=== PATIENT | female | born 1985 | race Caucasian/White ===

== ENCOUNTER 2022-02-16 08:53 | Outpatient (CLI) | payer BC, SELFPAY ==
[2022-02-16 14:21] LABS: Albumin* 4.4 g/dL (3.3-5.0); Chloride* 105 mmol/L (96-114); Potassium* 4.5 mmol/L (3.6-5.1); Sodium* 138 mmol/L (135-149)
[2022-02-16 14:23] LABS: Cholesterol* 203 mg/dL (90-199); Creatinine* 0.9 mg/dL (0.5-1.5); Estimated Glomerular Filt Rate 85 ml/min
[2022-02-16 14:24] LABS: Alanine Aminotransferase* 16 U/L (4-35); Alkaline Phosphatase* 57 U/L (40-150); Aspartate Amino Transferase* 24 U/L (12-35); Bilirubin Total* 0.4 mg/dL (0.1-1.5); Blood Urea Nitrogen* 16 mg/dL (5-24); Carbon Dioxide* 24 mmol/L (20-32); Triglycerides* 167 mg/dL (40-149)
[2022-02-16 14:25] LABS: Calcium* 9.5 mg/dL (8.4-10.6); HDL Cholesterol* 50 mg/dL (>=50); LDL Cholesterol Calculated 120 mg/dL (<100)
[2022-02-16 15:51] LABS: Glucose* 94 mg/dL (60-115)
== END 2022-02-16 08:54 | disposition home or self-care (01) ==
PROVIDERS: PCP Physician Assistant Medical; Visit Provider Physician Assistant Medical
DX: Z78.9 Other specified health status (principal)
CPT/HCPCS: 80053; 80061; 84443

== ENCOUNTER 2023-03-17 07:12 | Outpatient (CLI) | payer BC, SELFPAY ==
--- NOTE | 2023-03-17 07:15 | CRLHL7_ITS ---
For Patients: As a result of the Century Cures Act, medical imaging exams and procedure reports are released immediately into your electronic medical record. You may view this report before your referring provider. If you have questions, please contact your health care provider. INDICATION: First trimester scan, establish dates. COMPARISON: None. TECHNIQUE: Real-time griggs-scale imaging of the pelvis was performed. FINDINGS: Sonographic imaging demonstrates a single living intrauterine gestation. The embryo demonstrates a regular cardiac rate measuring 154 beats per minute. The embryo`s crown-rump length measurement of 1.2 cm corresponds to a gestational age of 7 weeks 3 days with a sonographic due date of 10/31/2023. There is a normal-appearing yolk sac. There are no gross abnormalities noted within the embryo at this early state of development. The gestational sac has a normal appearance. There is a 0.6 x 0.7 x 2.6 cm perigestational hemorrhage. The amount of fluid within the sac appears appropriate for gestational age. The cervix is closed. The myometrium appears normal. The ovaries are of normal size. Corpus luteal cyst right ovary. There are no suspicious fluid collections noted in the cul-de-sac. IMPRESSION: Single living intrauterine with sonographic gestational age 7 weeks 3 days and sonographic due date of 10/31/2023. Inferior subchorionic hemorrhage measuring 6 x 7 x 26 millimeters. Dictated by Robert Lainez MD @ 03/17/2023 2:34:22 PM (Electronically Signed)
== END 2023-03-17 07:13 | disposition home or self-care (01) ==
LOC: US 07:12
PROVIDERS: PCP Physician Assistant Medical; Visit Provider Physician Assistant
DX: Z34.91 Encounter for supervision of normal pregnancy, unspecified, first trimester (principal); O20.9 Hemorrhage in early pregnancy, unspecified; Z3A.01 Less than 8 weeks gestation of pregnancy
CPT/HCPCS: 76817; 86592; 86703; 86704; 86706; 86762; 86787; 86803; 86850; 86900; 86901; 87086; 87340; 87491; 87591

== ENCOUNTER 2023-08-16 13:05 | Outpatient (CLI) | payer BC, SELFPAY | END 2023-08-16 13:06 | disposition home or self-care (01) | LOC: NFLDREF 08-21 06:47 | PROVIDERS: PCP Physician Assistant Medical; Referring Provider Physician Assistant Medical; Visit Provider Obstetrics & Gynecology | DX: Z34.93 Encounter for supervision of normal pregnancy, unspecified, third trimester (principal) | CPT/HCPCS: 86592 ==

== ENCOUNTER 2023-09-12 11:03 | Outpatient (CLI) | payer BC, SELFPAY ==
--- NOTE | 2023-09-12 11:00 | US_ITS ---
Patient: TREVER SCHMITT Facility:?[facility] Patient ID:?[id number] Site Patient ID:?[id number]. Site :?[id number] Study:?US-OB Pelvis OB F/U GROWTH-09/12/2023 11:58:53 AM Ordering Physician:?MAYA GARCIA M.D. Final Report: INDICATION: Third trimester scan, evaluate growth. COMPARISON: 03/17/2023 TECHNIQUE: Real time griggs scale imaging of the fetus was performed. FINDINGS: Sonographic imaging demonstrates a single living intrauterine gestation. Fetus demonstrates a regular cardiac rate of 159 beats per minute. Fetus has a vertex position. The placenta lies anteriorly. Amniotic fluid volume appears normal and there is a single deepest vertical pocket: 4.7 cm. The estimated weight is 2451gm which lies at the 79th %. BPD 94th percentile. HC 95th percentile. AC 82nd percentile. FL 44th percentile. The HC/AC ratio measures 1.07 range (0.93- 1.11). IMPRESSION: Sonographic gestational age 35 weeks 1 day and sonographic due date of 10/16/2023. Sonographic age 13 days ahead of the clinical age. Estimated weight 79th percentile. Abdominal circumference 82nd percentile Dictated by Robert Lainez MD @ 09/13/2023 1:08:28 PM Signed by:?Robert Lainez MD @09/13/2023 1:08:28 PM (Electronic Signature)
== END 2023-09-12 11:04 | disposition home or self-care (01) ==
LOC: US 11:03
PROVIDERS: PCP Physician Assistant Medical; Visit Provider Obstetrics & Gynecology
DX: O09.523 Supervision of elderly multigravida, third trimester (principal); O36.63X0 Maternal care for excessive fetal growth, third trimester, not applicable or unspecified; Z3A.35 35 weeks gestation of pregnancy
CPT/HCPCS: 76816

== ENCOUNTER 2023-10-04 12:28 | Outpatient (CLI) | payer BC, SELFPAY ==
[2023-10-05 20:26] LABS: Strep B DNA Probe Negative (Negative)
[2023-10-05 23:31] LABS: Strep B Susceptibility Needed? No
== END 2023-10-04 12:29 | disposition home or self-care (01) ==
LOC: FRMREF 12:29
PROVIDERS: PCP Orthopaedic Surgery; Visit Provider Obstetrics & Gynecology
DX: Z34.83 Encounter for supervision of other normal pregnancy, third trimester (principal)
CPT/HCPCS: 87081; 87653

== ENCOUNTER 2023-10-13 10:00 | Outpatient (RCR) | payer BC, SELFPAY | END 2023-12-13 10:33 | disposition home or self-care (01) | PROVIDERS: PCP Physician Assistant Medical; Visit Provider Obstetrics & Gynecology | DX: O99.891 Other specified diseases and conditions complicating pregnancy (principal); M54.50 Low back pain, unspecified; Z74.09 Other reduced mobility; R53.1 Weakness; Z51.89 Encounter for other specified aftercare | CPT/HCPCS: 97110; 97140; 97162; 97535 ==

== ENCOUNTER 2023-10-23 06:12 | Inpatient (IN) | payer BC, SELFPAY ==
[2023-10-23] VITALS (53 sets, daily range): BP systolic 81–127; BP diastolic 50–71; PULSE 57–109; RESP 14–16; TEMP 36.5–36.9; O2SAT 91–100; BMI 27.3
[2023-10-23 06:53] LABS: Basophils Absolute Auto 0.03 K/uL (0.00-0.30); Basophils Percent Auto 0.4 % (0.0-3.0); Eosinophils Percent Auto 1.2 % (0.0-7.0); Hematocrit 32.7 % (33.0-51.0); Hemoglobin* 10.8 gm/dL (12.0-16.0); Immature Granulocytes Abs Auto 0.05 K/uL (0.00-0.30); Immature Granulocytes Pct Auto 0.6 %; Lymphocytes Absolute Auto 2.09 K/uL (0.90-2.90); Lymphocytes Percent Auto 25.1 % (20-44); Mean Corpuscular HGB Conc 33 gm/dL (32-36); Mean Corpuscular Hemoglobin 30 pg (26-34); Mean Corpuscular Volume 91 fL (80-100); Neutrophils Absolute Auto 5.48 K/uL (1.7-7.0); Neutrophils Percent Auto 65.7 % (42.0-72.0); Platelet Count* 216 K/uL (140-440); RDW Coefficient of Variation % 13.6 % (11.5-15.5); Red Blood Count 3.58 m/uL (4.00-5.20); White Blood Count* 8.33 K/uL (4.50-11.00)
[2023-10-23 06:57] LABS: Slide Review Reflex No
[2023-10-23] MEDS: OXYTOCIN 30 unit/500 ML in NS 30 UNIT/500 ML BAG IVPB (07:47)
[2023-10-23] MEDS: LACTATED RINGERS 1000 ML 1,000 ML 124 ML IV (07:51)
--- NOTE | 2023-10-23 08:22 | P.LDBA_ITS ---
Subjective History of Present Illness Date Seen: 10/23/23 Narrative: Patient is being admitted to Labor and Delivery for elective induction of labor. She is a 38 year old at 39 weeks, 1 day gestation. Her full history and physical was dictated by Dr. Amalia Morton CNM on 10/11/2023. P estelle see this for details. Specific Issues/Plans Spouse: Luke. Chidren: Bert Richardson Clara. Baby: Boy. 1. AMA * Level 2 ultrasound 06/02/23:EFW 75%, vtx, ant placenta w/o previa, 3 vessel cord. Normal survey. * [id number] 04/17/2023: No increased risk for aneuploidy. 2. Covid in the 1st trimester * US for EFW at 30-34 weeks * 2nd child (her boy) was 8#8oz. told by her ELECTRICAL DEVELOPMENT ENGINEER that she would not be able to deliver vaginally if her baby was bigger: pushed 2 hours with multiple lacerations, unmedicated. * 75% at 40 weeks is 3466gm = 7#9.6oz. * Elective IOL at 39 weeks. 3. Growth ultrasound at 33 weeks: BPD 94%, HC 95%, AC 82%, FL 44%. EFW 79%. 4. Hb 10.9 on 09/14 * SlowFe QOD Flu shot: Completed COVID shot: Planning Covid infection: 03/18/23 OB - Problem Based A/P Additional Plan (1) AMA (advanced maternal age) multigravida 35+: Status: Acute (2) Anemia affecting : Status: Acute Plan Multiparous patient at 39 weeks, 1 day with favorable cervix. Reassuring status with category 1 tracing GBS negative Delivery/Labor/Induction Plan Induction method: per pitocin protocol OB Result Labs Labs: Hemoglobin 10.8 this morning. Labs GBS Status: negative OB Exam Physical Exam Vital signs: Temp Pulse Resp BP Pulse Ox 98.4 F 87 16 126/70 100 10/23/23 06:24 10/23/23 06:24 10/23/23 06:24 10/23/23 06:24 10/23/23 06:25 Narrative: Physical exam: General: No acute distress Psych: Alert and oriented x3, full affect HEENT: Normocephalic, atraumatic Heart: Regular rate and rhythm, no murmur rub or gallop Lungs: Clear to auscultation bilaterally Abdomen: Gravid Lower extremities: No edema or erythema Pelvic exam: Per Romina Montague RN - 3 / -3 tracing: Baseline 135, accelerations to 170s, no decelerations, moderate variability. Infrequent contractions.
--- NOTE | 2023-10-23 12:43 | PM.OBPNVD1 ---
OB - PN:Subj Subjective Time Seen by Provider: 12:00 Date Seen: 10/23/23 Interval history: Mar is a 38 yo woman at 39 1/7 weeks' gestation here for elective IOL at term. Narrative: She has had pitocin for induction of labor beginning this morning. She is having regular contractions at this point, but they are not very painful. OB - PN: Obj Exam Physical Exam: Vital signs: Temp Pulse Resp BP Pulse Ox 98.4 F 65 16 81/51 L 100 10/23/23 10:35 10/23/23 11:56 10/23/23 06:24 10/23/23 11:56 10/23/23 06:25 blood pressure tends to run low on a regular basis Narrative: Gen - NAD SVE - 4 / 75% / -1 / anterior / soft AROM for clear fluid tracing: Baseline 135 / accelerations present / no decelerations / moderate variability OB - PN: Obj Data Labs Labs: Laboratory Results - last 24 hr 10/23/23 06:38 WBC 8.33 RBC 3.58 L Hgb 10.8 L Hct 32.7 L MCV 91 MCH 30 MCHC 33 RDW Coeff of Atul 13.6 Plt Count 216 Neut % (Auto) 65.7 Lymph % (Auto) 25.1 [place] % (Auto) 7.0 Eos % (Auto) 1.2 Baso % (Auto) 0.4 Neut # (Auto) 5.48 Lymph # (Auto) 2.09 [place] # (Auto) 0.60 Eos # (Auto) 0.10 Baso # (Auto) 0.03 Abs Immat Gran (auto) 0.05 Imm/Tot Granulo (auto) 0.6 Blood Type B Positive Antibody Screen NEGATIVE OB - PN: A/P Delivery Assessment and Plan (1) AMA (advanced maternal age) multigravida 35+: Status: Acute (2) Anemia affecting : Status: Acute
[2023-10-23] MEDS: BUPIVACAINE 0.25% PF 10 ML 10 ML ML EPIDURAL (12:58)
[2023-10-23] MEDS: ROPIVACAINE 0.2% 100 ml 100 ML 12 MG EPIDURAL (13:02)
[2023-10-23] MEDS: LACTATED RINGERS 1000 ML 1,000 ML 518 ML IV (13:11)
--- NOTE | 2023-10-23 13:16 | PM.ANBPRC ---
[facility] Medical History History of depression ?Z86.59 - Personal history of other mental and behavioral disorders (ICD-10) Essential tremor ?G25.0 - Essential tremor (ICD-10) Surgical History History of third molar tooth extraction ?K08.409 - Partial loss of teeth, unspecified cause, unspecified class (ICD-10) Family History Mother High cholesterol Father High cholesterol Grandfather Heart disease, Onset Age: 70 Lung cancer, Onset Age: 70 Social History Narrative: History of blood transfusion: no. 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 Marital status: . Anabaptism/cultural needs: no. Chemical or radiation exposure: no. Pre- tobacco use: no. Pre- alcohol use: no. Current tobacco use: no. Current alcohol use: no. Recreational drug use: no. Dietary restrictions: no. Blood transfusion acceptable in an emergency: yes. FAMILY AND GENETIC HISTORY: Negative for recurrent loss, defects, inheritable disease. PSYCHOSOCIAL HISTORY: History of depression or currently depressed: Yes, in college. Current or past physical, emotional, or sexual mistreatment: no. Problems that will make it hard to make it to appointments: no What is your current living situation?: I presently have a place to live Problems where you live: no known problems In the past 12 months, utilities in danger of being shut off: no In past 12 months, lack of transportation kept you from medical appts, meetings, work, or getting things needed for daily living: no In the past 12 mos, have been you worried that your food would run out before you had money to buy more?: never true In the past 12 mos, the food you bought just didn't last and you didn't have money to buy more?: never true Smoking Status: Never smoker How often does anyone, including family, friends and others, physically hurt you: never How often does anyone, including family, friends and others, insult or talk down to you: never How often does anyone, including family, friends and others, threaten you with harm: never How often does anyone, including family, friends and others, scream or curse at you: never Little interest or pleasure in doing things: not at all Feeling down, depressed, or hopeless: not at all Meds Home Medications and Allergies Home Medications ?Medication ?Instructions ?Recorded ?Confirmed ?Type lactobacillus combination no.4 3 3,000 mmu cells PO QDAY 10/11/23 10/23/23 History billion cell capsule (Probiotic) omega 7-xqu-jwu-fish oil 60 mg-90 1 cap PO QDAY 10/11/23 10/23/23 History mg-500 mg capsule (Fish Oil) wheat dextrin 3 gram/3.5 gram oral 1 packet PO QDAY 10/11/23 10/23/23 History powder packet (Benefiber Clear Sugar Free(dextrin)) magnesium 200 mg tablet 400 mg PO DAILY 10/23/23 10/23/23 History Allergies Allergy/AdvReac Type Severity Reaction Status Date / Time Sulfa (Sulfonamide Allergy Intermediate Swelling Verified 10/18/23 13:11 Antibiotics) of Lip/Tongue/Throat Results Labs Labs: Laboratory Results - last 24 hr 10/23/23 06:38 WBC 8.33 RBC 3.58 L Hgb 10.8 L Hct 32.7 L MCV 91 MCH 30 MCHC 33 RDW Coeff of Atul 13.6 Plt Count 216 Neut % (Auto) 65.7 Lymph % (Auto) 25.1 [place] % (Auto) 7.0 Eos % (Auto) 1.2 Baso % (Auto) 0.4 Neut # (Auto) 5.48 Lymph # (Auto) 2.09 [place] # (Auto) 0.60 Eos # (Auto) 0.10 Baso # (Auto) 0.03 Abs Immat Gran (auto) 0.05 Imm/Tot Granulo (auto) 0.6 Blood Type B Positive Antibody Screen NEGATIVE Vital Signs Vital Signs: Last Vital Signs Temp 98.4 F 10/23/23 10:35 Pulse 75 10/23/23 13:12 Resp 16 10/23/23 06:24 BP 104/64 10/23/23 13:12 Pulse Ox 98 10/23/23 13:16 Weight: 74.48 kg Height: 165.1 cm Anesthesia Procedures Epidural Insertion Patient Location: OB Start Time: 12:30 Stop Time: 13:15 Start Date: 10/16/23 Stop Date: 10/23/23 Reason for Block: procedure for pain Patient Position: sitting Performed By: Carmela Polk Preanesthetic Checklist: IV checked, risks and benefits discussed, monitors and equipment checked, timeout performed and anesthesia consent Prep: chlorhexidine gluconate Monitoring: blood pressure monitoring, continuous pulse oximetry and heart rate Approach: midline Vertebral Space: lumbar (1-5) Epidural Technique: MUSA saline Needle Type: Tuohy needle Injection Technique: continuous catheter Needle gauge: 17 Needle Length (cm): 10 cm Needle Insertion Depth (cm): 6 Catheter Gauge: 19 Catheter Type: multi-orifice Catheter at skin depth (cm): 12 Test Dose Result: negative and lidocaine 1.5% with epinephrine 1 to 200,000
[2023-10-23] MEDS: PHENYLEPHRINE 100 MCG/ML SYRINGE IVP ×3 (13:23→14:20)
--- NOTE | 2023-10-23 13:26 | PM.OBPNL ---
Subjective Time Seen by Provider: 12:00 Date Seen: 10/23/23 Narrative: Mar is a 38 yo woman at 39 1/7 weeks' gestation here for elective IOL at term. She has had pitocin for induction of labor beginning this morning. She is having regular contractions at this point, but they are not very painful. Objective Exam: Gen - NAD SVE - 4 / 75% / -1 / anterior / soft AROM for clear fluid Vital Signs: Last Vital Signs Temp 98.4 F 10/23/23 10:35 Pulse 83 10/23/23 13:24 Resp 16 10/23/23 06:24 BP 91/55 L 10/23/23 13:24 Pulse Ox 99 10/23/23 13:26 Comments: tracing: Baseline 135 / accelerations present / intermittent brief variable decelerations / moderate variability Assessment Tracing Comments: Latent labor, progressing slowly with pitocin Category 2 tracing, overall reassuring GBS negative Plan Plan: AROM for clear fluid as noted above Continue pitocin augmentation Continuous monitoring Epidural as desired
[2023-10-23] MEDS: ePHEDrine sulfate 5 MG/ML inj 10 MG IVP (14:44)
[2023-10-23] MEDS: ONDANSETRON 2 MG/ML inj 4 MG IV (14:53)
--- NOTE | 2023-10-23 17:00 | W.PM.VAGDEL1 ---
Procedure Delivery date: 10/23/23 Procedure Done: Global Procedure Details: The patient is a 38 year-old G 5 P 3-0-1-3 woman admitted on 10/23/2023 at 39 Weeks, 1 Days gestation for elective induction of labor.? Cervical exam on admission was 3 cm/50 % effaced/Ms. 3 station with membranes intact in vertex presentation.? Contractions were infrequent.? heart rate demonstrated a category 1 tracing.? AROM occurred at 12:00 p.m. with clear fluid. ? Labor Analgesia:? Epidural Pitocin:? Yes ? Complete:? 4:37 p.m. ? Pushing:? 4:43 p.m. ? heart tones during second stage were notable for decelerations into the 90s just before . ? At 4:52 p.m. a viable male infant delivered in vertex TIFFANIE presentation over intact perineum via spontaneous vaginal delivery.? Infant was placed on maternal abdomen.? Cord was clamped and cut after greater than 60 seconds.? Nose and mouth were bulb suctioned.? weight pending.? 9 at 1 minute and 9 at 5 minutes.? Shoulder dystocia: No.? Nuchal cord: No. ? Placenta delivered spontaneously and complete at 4:52 p.m. with a 3 vessel cord. ? Mother and were stable after delivery. ? Lacerations:? First-degree perineal, repaired with a single [id number] suture of 3-0 Vicryl. ? Blood loss: 75 mL. Blood loss measurement type: QBL ? Sponge and needles counts are correct.
[2023-10-23] MEDS: ACETAMINOPHEN 500 MG TABLET 1000 MG PO (20:17)
[2023-10-24 00:16] VITALS: BP 97/61; PULSE 76; RESP 16; TEMP 36.7; O2SAT 98
[2023-10-24] MEDS: IBUPROFEN 600 MG TABLET PO ×3 (00:21→12:54)
[2023-10-24 03:57] VITALS: BP 94/60; PULSE 69; RESP 16; TEMP 36.6; O2SAT 97
--- NOTE | 2023-10-24 07:36 | P.DS_ITS ---
DS: Providers Provider Date Seen: 10/24/23 Date of admission: 10/23/23 06:12 Primary care physician: Aaron Helm MD Admitting Clinician: Stephanie Simmons MD Attending Physician on discharge: Mallorie Vasquez CNM DS: Diagnosis Discharge Diagnosis (1) care and examination immediately after delivery: Status: Acute (2) Lactating mother: Status: Acute Exam Narrative: Exam Narrative: GENERAL APPEARANCE:? normal affect, alert, no distress MOOD:? appropriate CHEST:? clear to auscultation HEART:? regular rate and rhythm ABDOMEN:? soft, non-tender the uterine fundus is At Umbilicus, Midline and is appropriate for the stage of recovery. PERINEUM:? mild edema of the perineum, there is a Perineal Laceration,?1st degree that is healing well. EXTREMITIES:? normal and no edema Const: Vital Signs, click to edit/add: Vital Signs - 24 hr 10/23/23 08:32 10/23/23 09:24 10/23/23 10:34 Temperature Pulse Rate 75 68 72 Pulse Rate [Pulse Oximeter] Respiratory Rate Blood Pressure 102/63 116/62 108/62 Blood Pressure [Ri ght Arm] Pulse Oximetry Oxygen Delivery Me thod 10/23/23 10:35 10/23/23 11:50 10/23/23 11:56 Temperature 98.4 F Pulse Rate 71 65 Pulse Rate [Pulse Oximeter] Respiratory Rate Blood Pressure 88/51 L 81/51 L Blood Pressure [Ri ght Arm] Pulse Oximetry Oxygen Delivery Me thod 10/23/23 12:51 10/23/23 12:56 10/23/23 13:01 Temperature Pulse Rate 76 Pulse Rate [Pulse Oximeter] Respiratory Rate Blood Pressure 127/64 Blood Pressure [Ri ght Arm] Pulse Oximetry 100 100 100 Oxygen Delivery Me thod 10/23/23 13:02 10/23/23 13:04 10/23/23 13:06 Temperature Pulse Rate 86 86 86 Pulse Rate [Pulse Oximeter] Respiratory Rate Blood Pressure 113/63 104/62 105/61 Blood Pressure [Ri ght Arm] Pulse Oximetry 100 Oxygen Delivery Me thod 10/23/23 13:08 10/23/23 13:10 10/23/23 13:11 Temperature Pulse Rate 82 81 Pulse Rate [Pulse Oximeter] Respiratory Rate Blood Pressure 101/63 102/62 Blood Pressure [Ri ght Arm] Pulse Oximetry 100 Oxygen Delivery Me thod 10/23/23 13:12 10/23/23 13:16 10/23/23 13:19 Temperature Pulse Rate 75 88 Pulse Rate [Pulse Oximeter] Respiratory Rate Blood Pressure 104/64 97/60 Blood Pressure [Ri ght Arm] Pulse Oximetry 98 Oxygen Delivery Me thod 10/23/23 13:21 10/23/23 13:24 10/23/23 13:26 Temperature Pulse Rate 83 Pulse Rate [Pulse Oximeter] Respiratory Rate Blood Pressure 91/55 L Blood Pressure [Ri ght Arm] Pulse Oximetry 99 91 99 Oxygen Delivery Me thod 10/23/23 13:28 10/23/23 13:31 10/23/23 13:33 Temperature Pulse Rate 57 L 75 Pulse Rate [Pulse Oximeter] Respiratory Rate Blood Pressure 91/53 L 95/54 L Blood Pressure [Ri ght Arm] Pulse Oximetry 98 Oxygen Delivery Me thod 10/23/23 13:36 10/23/23 13:37 10/23/23 13:41 Temperature Pulse Rate 71 Pulse Rate [Pulse Oximeter] Respiratory Rate Blood Pressure 92/50 L Blood Pressure [Ri ght Arm] Pulse Oximetry 97 98 Oxygen Delivery Me thod 10/23/23 13:42 10/23/23 13:46 10/23/23 13:47 Temperature Pulse Rate 72 Pulse Rate [Pulse Oximeter] Respiratory Rate Blood Pressure 95/54 L Blood Pressure [Ri ght Arm] Pulse Oximetry 97 92 Oxygen Delivery Me thod 10/23/23 14:05 10/23/23 14:19 10/23/23 14:34 Temperature Pulse Rate 71 71 69 Pulse Rate [Pulse Oximeter] Respiratory Rate Blood Pressure 94/52 L 88/52 L 105/65 Blood Pressure [Ri ght Arm] Pulse Oximetry Oxygen Delivery Me thod 10/23/23 14:42 10/23/23 14:48 10/23/23 15:04 Temperature Pulse Rate 74 75 67 Pulse Rate [Pulse Oximeter] Respiratory Rate Blood Pressure 101/66 112/71 102/64 Blood Pressure [Ri ght Arm] Pulse Oximetry Oxygen Delivery Me thod 10/23/23 15:18 10/23/23 15:33 10/23/23 15:48 Temperature Pulse Rate 71 71 83 Pulse Rate [Pulse Oximeter] Respiratory Rate Blood Pressure 108/64 100/63 110/61 Blood Pressure [Ri ght Arm] Pulse Oximetry Oxygen Delivery Me thod 10/23/23 16:04 10/23/23 16:33 10/23/23 16:48 Temperature Pulse Rate 75 81 109 H Pulse Rate [Pulse Oximeter] Respiratory Rate Blood Pressure 109/68 102/65 98/66 Blood Pressure [Ri ght Arm] Pulse Oximetry Oxygen Delivery Me thod 10/23/23 16:54 10/23/23 16:54 10/23/23 17:08 Temperature 97.7 F Pulse Rate 91 93 Pulse Rate [Pulse Oximeter] Respiratory Rate Blood Pressure 102/61 112/55 L Blood Pressure [Ri ght Arm] Pulse Oximetry Oxygen Delivery Me thod 10/23/23 17:25 10/23/23 17:25 10/23/23 17:40 Temperature Pulse Rate 95 80 Pulse Rate [Pulse Oximeter] Respiratory Rate 16 Blood Pressure 123/67 106/64 Blood Pressure [Ri ght Arm] Pulse Oximetry Oxygen Delivery Me thod 10/23/23 17:55 10/23/23 17:55 10/23/23 18:10 Temperature Pulse Rate 75 80 Pulse Rate [Pulse Oximeter] Respiratory Rate 16 Blood Pressure 100/56 L 101/57 L Blood Pressure [Ri ght Arm] Pulse Oximetry 96 Oxygen Delivery Me thod 10/23/23 18:10 10/23/23 18:25 10/23/23 18:25 Temperature Pulse Rate 88 Pulse Rate [Pulse Oximeter] Respiratory Rate 16 16 Blood Pressure 125/59 L Blood Pressure [Ri ght Arm] Pulse Oximetry 98 Oxygen Delivery Me thod 10/23/23 18:40 10/23/23 18:40 10/23/23 20:37 Temperature 97.8 F 98.2 F Pulse Rate 88 Pulse Rate [Pulse Oximeter] Respiratory Rate 16 14 Blood Pressure 114/59 L Blood Pressure [Ri ght Arm] 92/54 L Pulse Oximetry 98 Oxygen Delivery Me thod 10/24/23 00:16 10/24/23 03:57 Temperature 98.1 F 98 F Pulse Rate Pulse Rate [Pulse Oximeter] 76 69 Respiratory Rate 16 16 Blood Pressure Blood Pressure [Ri ght Arm] 97/61 94/60 Pulse Oximetry 98 97 Oxygen Delivery Me thod Room Air Room Air Documenting provider has reviewed patient's vital signs: yes OB - DS: Summary Hospital Course Hospital Course: Mar is a 38 y.o. G 4 P 3013 who was admitted to [facility] for Mar. ?She had a NVD that was uncomplicated. The patient feels well. ?The pain is well c ontrolled with current medications. ?She has no new complaints. ?She is breast feeding and reports things are going well. the patient has done well.? Vitals have been stable.? She has remained afebrile.? Has a good appetite, is tolerating a general diet. ?She is voiding without difficulty.? She is passing gas and has not had a bowel movement.? She is ambulating and denies any dizziness.? Has small amount of rubra lochia. She is planning mini pill for prevention. Problems: none plan: Discharge home with baby. Follow up in 2 weeks and 6 weeks. , may see if needed Hgb 11.4. Peripartum Data Infant delivery method: Vaginal Laceration description: Perineal - 1st Degree complications: none [place] Infant Gender: Male Infant Discharge Plan: Home Status at Discharge Functional status at discharge: independent ambulation Overall status at discharge: patient is progressing back to baseline Time Spent with Patient Time attestation: Total time spent providing and/or coordinating discharge services: Time spent: Less than 30 minutes Discharge Plan Discharge Disposition: Home, Self-Care Date of Admission: 10/23/23 06:12 Primary Care Provider: Aaron Helm Condition: Stable Anticipated Discharge Date/Time: 10/24/23 17:00 Discharge Medications: New docusate sodium 100 mg Capsule 100 mg PO DAILY Qty: 90 0RF ibuprofen 600 mg Tablet 600 mg PO Q6H PRNQty: 60 0RF acetaminophen 500 mg Tablet 1,000 mg PO Q6H PRNQty: 0 0RF Continued omega 2-dmb-ehj-fish oil [Fish Oil] 60-90-500 mg capsule 1 cap PO QDAY Probiotic 3 billion cell capsule 3,000 mmu cells PO QDAY Rx Instructions: administer with a meal Benefiber Clear SF (dextrin) 3 gram/3.5 gram powder in packet 1 packet PO QDAY Rx Instructions: mix into at least 4 oz water or juice before administering magnesium 200 mg tablet 400 mg PO DAILY (DME) breast pump Device See Rx Instructions .Route Qty: 1 0RF Rx Instructions: As directed ferrous sulfate 324 mg (65 mg iron) tablet,delayed release (DR/EC) 324 mg PO Q OTHER DAY Qty: 30 0RF Discharge Orders: Discharge Order (Routine); Ordered 10/24/23 Ordered By: Mallorie Vasquez Patient Education: OB Over the Counter Medication Information, OB Vaginal/Breast Feeding Additional Instructions: Discharge instructions were reviewed with the patient including signs and symptoms of infection and home going medications Nothing vaginally for 6 weeks: no tampons or intercourse Do not drive while taking narcotic pain medication(s) Off Work or School for 8 weeks 2-week visit: discuss feeding concerns, review control options and screen for anxiety/depression. 6-week visit for an annual exam. consultation services are available to all mothers and babies for the first year after delivery.? To make an appointment, please call [phone]. Activity Level: Activity as Tolerated Discharge Diet: Regular Follow Up Appointments: [facility] [Provider Group] Forms: MyHealth Info Instructions
[2023-10-24 07:44] LABS: Hemoglobin* 11.4 gm/dL (12.0-16.0)
[2023-10-24 07:47] VITALS: BP 100/67; PULSE 66; RESP 20; TEMP 36.6; O2SAT 98
--- NOTE | 2023-10-24 09:35 | PM.ANPOST ---
Post Anesthesia Note Post Anesthesia Note Patient seen: Inpatient Respiratory Status: adequate Cardiovascular Status: adequate Mental Status: baseline Pain: adequate Temp: baseline Anesthetic awareness: N/A Complications: none Follow care: none
[2023-10-24] MEDS: DOCUSATE SODIUM 100 MG CAPSULE PO (10:37)
[2023-10-24 12:48] VITALS: BP 96/59; PULSE 72; RESP 16; O2SAT 99
[2023-10-24 16:25] VITALS: BP 102/66; PULSE 69; RESP 20; TEMP 36.8; O2SAT 98
[2023-10-24 18:56] LABS: Rapid Plasma Reagin (RPR) Non Reactive (Non Reactive)
== END 2023-10-24 18:18 | disposition home or self-care (01) | DRG 560 ==
PROVIDERS: Admitting Provider Obstetrics & Gynecology; PCP Orthopaedic Surgery; Visit Provider Obstetrics & Gynecology
DX: O99.02 Anemia complicating childbirth (principal); D64.9 Anemia, unspecified; O76 Abnormality in fetal heart rate and rhythm complicating labor and delivery; O70.0 First degree perineal laceration during delivery; Z3A.39 39 weeks gestation of pregnancy; Z37.0 Single live birth
CPT/HCPCS: 01967; 36415; 85018; 85025; 86592; 86850; 86900; 86901; A9270; J0665; J2371; J2405; J2795; J7120

== ENCOUNTER 2024-02-09 10:15 | Outpatient (RCR) | payer BC, SELFPAY | END 2024-06-08 23:59 | disposition home or self-care (01) | PROVIDERS: PCP Orthopaedic Surgery; Visit Provider Obstetrics & Gynecology | DX: N94.9 Unspecified condition associated with female genital organs and menstrual cycle (principal); R10.2 Pelvic and perineal pain; M54.9 Dorsalgia, unspecified; Z74.09 Other reduced mobility; R53.1 Weakness; R27.8 Other lack of coordination; Z51.89 Encounter for other specified aftercare | CPT/HCPCS: 97110; 97140; 97162; 97535 ==

== ENCOUNTER 2025-04-15 07:54 | Outpatient (CLI) | payer BC, SELFPAY | END 2025-04-15 07:55 | disposition home or self-care (01) | LOC: NFLDREF 04-17 13:56 | PROVIDERS: PCP Orthopaedic Surgery; Referring Provider Orthopaedic Surgery; Visit Provider Registered Nurse | DX: Z13.9 Encounter for screening, unspecified (principal) | CPT/HCPCS: 80061 ==